=== PATIENT | female | born 1995 | race Caucasian/White ===

== ENCOUNTER 2019-10-29 11:21 | Observation (INO) | payer MEDICAID ==
[~2019-10-29] VITALS: Ht 165.1 cm; Wt 99.8 kg
[2019-10-29] MEDS ORDERED: FERR325T6 PO (11:55)
[2019-10-29] MEDS ORDERED: PNV1TABL76 PO (11:55)
== END 2019-10-29 13:40 | disposition home or self-care (01) ==
LOC: 8 EST LDRP 11:21
PROVIDERS: ADMIT Specialist; ATTEND Specialist
DX: O36.8130 Decreased fetal movements, third trimester, not applicable or unspecified (principal); Z3A.37 37 weeks gestation of pregnancy
CPT/HCPCS: 76815; 76818; 99281; G0378